=== PATIENT | male | born 1960 | race Caucasian/White ===

== ENCOUNTER 2018-03-20 11:55 | Outpatient (REF) | payer MEDICARE, SELFPAY ==
[2018-03-20 19:54] LABS: TSH (W/Ref FT4) 2.39 uIU/mL (0.358-3.74)
== END 2018-03-20 12:15 ==
LOC: NCHCN 11:55
PROVIDERS: PCP Family Medicine; Visit Provider Family Medicine
DX: E89.0 Postprocedural hypothyroidism (principal)
CPT/HCPCS: 84443

== ENCOUNTER 2018-08-16 10:14 | Outpatient (REF) | payer MEDICARE, SELFPAY ==
[2018-08-16 14:21] LABS: ALT 31 U/L (12-78); AST 15 U/L (15-37); Albumin 3.7 g/dL (3.4-5.0); Alkaline Phosphatase 84 U/L (46-116); Anion Gap 7.5 mmol/L (3-11); BUN 13 mg/dL (7-18); Bilirubin, Total 0.5 mg/dL (0.2-1.0); CO2 30.5 mmol/L (21.0-32.0); CREATININE 0.99 mg/dL (0.70-1.30); Chloride 102 mmol/L (98-107); Glucose 208 mg/dL (70-100); Magnesium 1.8 mg/dL (1.8-2.4); Potassium 4.4 mmol/L (3.5-5.1); Sodium 140 mmol/L (136-145); Total Protein 6.9 g/dL (6.4-8.2)
== END 2018-08-16 10:34 ==
LOC: NCHCN 10:14
PROVIDERS: PCP Family Medicine; Visit Provider Family Medicine
DX: E11.9 Type 2 diabetes mellitus without complications (principal); E83.42 Hypomagnesemia; Z68.37 Body mass index [BMI] 37.0-37.9, adult
CPT/HCPCS: 80053; 83735

== ENCOUNTER 2019-02-12 11:42 | Outpatient (REF) | payer MEDICARE, SELFPAY ==
[2019-02-12 20:30] LABS: Calculated LDL 65 mg/dL; Cholesterol 127 mg/dL (50-200); HDL Cholesterol 35 mg/dL (40-60); Triglyceride 138 mg/dL (30-150)
== END 2019-02-12 12:02 ==
LOC: NCHCN 11:42
PROVIDERS: PCP Family Medicine; Visit Provider Family Medicine
DX: E11.9 Type 2 diabetes mellitus without complications (principal)
CPT/HCPCS: 80061; 83721

== ENCOUNTER 2019-06-20 13:30 | Outpatient (REF) | payer MEDICARE, SELFPAY ==
[2019-06-20 14:25] LABS: Anion Gap 9.2 mmol/L (3-11); BUN 15 mg/dL (7-18); CO2 26.8 mmol/L (21.0-32.0); CREATININE 0.88 mg/dL (0.70-1.30); Calcium 9.1 mg/dL (8.5-10.1); Chloride 106 mmol/L (98-107); Glucose 110 mg/dL (74-106); Magnesium 1.8 mg/dL (1.8-2.4); Potassium 4.2 mmol/L (3.5-5.1); Sodium 142 mmol/L (136-145); TSH (W/Ref FT4) 2.98 uIU/mL (0.36-3.74)
== END 2019-06-20 13:50 ==
LOC: NCHCN 13:30
PROVIDERS: PCP Family Medicine; Visit Provider Family Medicine
DX: E89.0 Postprocedural hypothyroidism (principal); E11.9 Type 2 diabetes mellitus without complications; E83.42 Hypomagnesemia
CPT/HCPCS: 80048; 83735; 84443

== ENCOUNTER 2020-05-26 20:20 | Outpatient (REF) | payer OTHER, SELFPAY ==
[2020-05-26 20:58] LABS: ALT 41 U/L (16-63); AST 15 U/L (15-37); Albumin 4.1 g/dL (3.4-5.0); Alkaline Phosphatase 77 U/L (46-116); Anion Gap 10.5 mmol/L (3-11); BUN 13 mg/dL (7-18); Bilirubin, Total 0.4 mg/dL (0.2-1.0); CO2 25.5 mmol/L (21.0-32.0); Calcium 9.1 mg/dL (8.5-10.1); Chloride 105 mmol/L (98-107); Glucose 180 mg/dL (74-106); Potassium 4.1 mmol/L (3.5-5.1); Sodium 141 mmol/L (136-145); TSH (W/Ref FT4) 3.54 uIU/mL (0.36-3.74); Total Protein 6.7 g/dL (6.4-8.2)
[2020-05-26 21:04] LABS: Hemoglobin A1C 6.3 % (<5.7)
== END 2020-05-26 20:40 ==
LOC: NCHCN 20:20
PROVIDERS: PCP Family Medicine; Visit Provider Family Medicine
DX: E83.42 Hypomagnesemia (principal); E89.0 Postprocedural hypothyroidism; E11.9 Type 2 diabetes mellitus without complications
CPT/HCPCS: 80053; 83036; 83735; 84443

== ENCOUNTER → 2020-09-14 09:52 | Outpatient (BNVA) | payer OTHER, SELFPAY | PROVIDERS: PCP Family Medicine; Referring Provider Family Medicine; Visit Provider Surgery | DX: L72.3 Sebaceous cyst (principal); L08.9 Local infection of the skin and subcutaneous tissue, unspecified | CPT/HCPCS: 10060; 99203; 99215 ==

== ENCOUNTER → 2020-09-24 11:17 | Outpatient (BNVA) | payer OTHER, SELFPAY | PROVIDERS: PCP Family Medicine; Referring Provider Family Medicine; Visit Provider Physical Therapy Assistant | DX: L72.3 Sebaceous cyst (principal); L08.9 Local infection of the skin and subcutaneous tissue, unspecified | CPT/HCPCS: 11442 ==

== ENCOUNTER → 2020-10-01 12:43 | Outpatient (BNVA) | payer OTHER, SELFPAY | PROVIDERS: PCP Family Medicine; Referring Provider Family Medicine; Visit Provider Physical Therapy Assistant | DX: Z48.02 Encounter for removal of sutures (principal) ==

== ENCOUNTER → 2021-02-14 10:56 | Outpatient (BNVA) | payer OTHER, SELFPAY | PROVIDERS: PCP Family Medicine; Referring Provider Family Medicine; Visit Provider Nurse Practitioner Gerontology | DX: L98.7 Excessive and redundant skin and subcutaneous tissue (principal); B37.49 Other urogenital candidiasis | CPT/HCPCS: 99215 ==

== ENCOUNTER 2021-04-15 14:05 | Outpatient (REF) | payer OTHER, SELFPAY ==
[2021-04-15 14:30] LABS: ALT 37 U/L (16-63); AST 22 U/L (15-37); Albumin 4.2 g/dL (3.4-5.0); Alkaline Phosphatase 79 U/L (46-116); Anion Gap 8.3 mmol/L (3-11); BUN 15 mg/dL (7-18); Bilirubin, Total 0.4 mg/dL (0.2-1.0); CO2 28.7 mmol/L (21.0-32.0); CREATININE 0.9 mg/dL (0.70-1.30); Calcium 9.3 mg/dL (8.5-10.1); Chloride 106 mmol/L (98-107); Glucose 112 mg/dL (74-106); Potassium 4.3 mmol/L (3.5-5.1); Sodium 143 mmol/L (136-145); TSH (W/Ref FT4) 3.82 uIU/mL (0.36-3.74); Total Protein 7.2 g/dL (6.4-8.2)
[2021-04-15 14:49] LABS: FREE T4 1.13 ng/dL (0.76-1.46)
== END 2021-04-15 14:06 | disposition home or self-care (01) ==
LOC: NCHCN 14:05
PROVIDERS: PCP Family Medicine; Visit Provider Family Medicine
DX: E89.0 Postprocedural hypothyroidism (principal); E11.9 Type 2 diabetes mellitus without complications; Z68.43 Body mass index [BMI] 50.0-59.9, adult
CPT/HCPCS: 80053; 84439; 84443

== ENCOUNTER 2021-05-02 01:33 | Outpatient (CLI) | payer OTHER, SELFPAY ==
--- NOTE | 2021-05-02 | DI.CTLCSR_ITS ---
Exam(s) CT CHEST LUNG CANCER SCREEN EXAM: CT CHEST LUNG CANCER SCREEN CLINICAL HISTORY: SCREENING FOR LUNG CA, FORMER SMOKER, Z87.891. TECHNIQUE: Imaging Protocol: Low Dose Technique CONTRAST MATERIAL: None COMPARISON: Chest x-ray performed April 2017 FINDINGS: CHEST: LUNGS: There are no ominous pulmonary nodules. There are no confluent infiltrates. No pleural effusi ons. MEDIASTINUM: There is no obvious hilar nor mediastinal adenopathy. CARDIAC: Heart size is normal. There is no pericardial effusion.Caliber of the thoracic aorta is wit hin normal limits. OTHER: Mildly elevated right hemidiaphragm. OSSEOUS: No significant osseous lesions.. IMPRESSION: 1. No significant pulmonary nodules nor pleural effusions. 2. No infiltrates. No intrathoracic adenopathy. 3. Lung RADS Cat 1 - Negative: No nodules and definitely benign nodules Lung-RADS 1.0 CATEGORIES: Category 0 - Prior chest CT exam(s) being located for comparison. Category 1 - Annual screening in 12 months. No nodules or definitely benign nodules. Category 2 - Annual screening in 12 months. Benign appearance. Nodules with low likelihood of becomin g active cancer. Category 3 - 6-month follow-up. Probably benign. Short-term follow-up suggested. Nodules with low lik elihood of becoming active cancer. Category 4A - 3-month follow-up and CT/PET if >8 mm in size. Suspicious finding. Findings which requi re additional testing. Category 4B - Findings which require additional testing and tissue sampling. Modifier S- Potentially clinically significant findings (non lung cancer) RADIATION DOSE DELIVERED: 86.5mGy.cm Total DLP 2.21mGy CTDIvol DATA REPOSITORY: All CT scans at this facility are submitted to the National Radiology Data Registry (NRDR) Dose Index Registry (DIR) with the [employer] (ACR). RADIATION OPTIMIZATION: All CT scans at this facility use at least one of these dose optimization te chniques: automated exposure control; mA and/or kV adjustment per patient size (includes targeted exa ms where dose is matched to clinical indication); or iterative reconstruction.
== END 2021-05-02 01:53 ==
PROVIDERS: PCP Family Medicine; Visit Provider Family Medicine
DX: Z87.891 Personal history of nicotine dependence (principal); Z12.2 Encounter for screening for malignant neoplasm of respiratory organs
CPT/HCPCS: 71271

== ENCOUNTER 2021-10-11 15:26 | Outpatient (REF) | payer OTHER, SELFPAY ==
[2021-10-11 17:15] LABS: TSH (W/Ref FT4) 3.41 uIU/mL (0.36-3.74)
== END 2021-10-11 15:27 | disposition home or self-care (01) ==
LOC: NCHCN 15:26
PROVIDERS: PCP Family Medicine; Visit Provider Family Medicine
DX: E89.0 Postprocedural hypothyroidism (principal)
CPT/HCPCS: 84443

== ENCOUNTER 2022-03-24 17:20 | Outpatient (REF) | payer OTHER, SELFPAY ==
--- NOTE | 2022-03-24 16:00 | PAPNONF_PTH ---
PATIENT: Peewee Gomez LOC: [facility]#:[id number] AGE/SX: 62/M ROOM: RE03/24/[address]: Annalee Hoffman : 1960 BED: DIS: 03/24/2022 SPEC #: [id number] RECD: 03/27/22 13:14 STATUS: YOSI RERonak #: [id number] MISAEL: 03/24/22 16:[address]: Annalee Hoffman DEPT: [facility] Cytology RECD BY: Salena Osorio ENTERED: 03/27/22 13:15 SP TYPE: RAMON BURKETT DR: Harsha Saavedra Tissues: 1 - BODY FLUID CYTO(SPUTUM/URINE)[facility] Procedures: BODY FLUID CYTO(URINE/SPUTUM) Comments: [id number] (TOTAL VOLUME = 100 ml) (50 ml URINE & 50 ml CYTOLYT ADDED IN 2 CONTAINERS)
[2022-03-24 19:12] LABS: Bilirubin Negative (Negative); Blood Moderate (Negative); Clarity Cloudy (Clear); Glucose 500 mg/dL (Negative); Ketones Negative (Negative); Leukocyte Esterase Negative (Negative); Nitrite Positive (Negative); Specific Gravity >= 1.030 (1.005-1.025); Urobilinogen 0.2 EU/dL (Up TO 0.2); pH 5.5 (5-8)
[2022-03-24 19:24] LABS: Bacteria Moderate HPF (Negative); C & S Indicated? C&S Done As Ordered; Casts Negative LPF (Negative); Crystals Negative HPF (Negative); Epithelial Cells Few HPF (Negative); HCT 44.7 % (40.0-50.0); HGB 14.7 g/dL (13.5-17.5); MCH 28.8 pg (27.0-33.0); MCHC 32.9 % (32.0-36.0); MCV 88 fL (80-95); MPV 9.8 fL (8.0-11.0); Mucus Negative (Negative); Platelet Count 281 10^3/uL (130-400); RBC 5.11 10^6/uL (4.36-5.78); RDW 14.2 % (11.8-14.1); RDW-SD 45.4 fL; WBC 8.46 10^3/uL (4.4-10.8)
[2022-03-24 19:39] LABS: BUN 16 mg/dL (7-18); CREATININE 0.9 mg/dL (0.70-1.30); Calcium 9.2 mg/dL (8.5-10.1); Chloride 104 mmol/L (98-107); Estimated GFR 95.97 (mL/min/1.73m2); Glucose 91 mg/dL (74-106); Potassium 4.1 mmol/L (3.5-5.1); Sodium 141 mmol/L (136-145)
[2022-03-27 09:41] LABS: PSA, Diagnostic 5.8 ng/mL (<=4.5)
== END 2022-03-24 17:21 | disposition home or self-care (01) ==
LOC: NCHCN 17:20
PROVIDERS: PCP Family Medicine; Visit Provider Nurse Practitioner Family
DX: R32 Unspecified urinary incontinence (principal)
CPT/HCPCS: 80048; 85027; 87077; 81003; 81015; 84153; 87086; 87186; 88104

== ENCOUNTER → 2022-06-02 00:18 | Outpatient (CLI) | payer MEDICARE, SELFPAY ==
--- NOTE | 2022-06-02 08:40 | DI.CTLCSR_ITS ---
Exam(s) CT CHEST LUNG CANCER SCREEN EXAM: CT CHEST LUNG CANCER SCREEN CLINICAL HISTORY: FORMER SMOKER Z87.891, SCREENING FOR LUNG CANCER. TECHNIQUE: Imaging Protocol: Low Dose Technique CONTRAST MATERIAL: None COMPARISON: CT CT CHEST LUNG CANCER SCREEN from 05/02/2021 FINDINGS: CHEST: LUNGS: There are no ominous pulmonary nodules. There are no confluent infiltrates. No pleural effusi ons. MEDIASTINUM: There is no obvious hilar nor mediastinal adenopathy. CARDIAC: Heart size is normal. There is no pericardial effusion.Caliber of the thoracic aorta is wit hin normal limits. OTHER: OSSEOUS: No significant osseous lesions.. IMPRESSION: 1. No significant pulmonary nodules and no pleural effusions. 2. No infiltrates. No intrathoracic adenopathy. 3. Lung RADS Cat 1 - Negative: No nodules and definitely benign nodules Lung-RADS 1.0 CATEGORIES: Category 0 - Prior chest CT exam(s) being located for comparison. Category 1 - Annual screening in 12 months. No nodules or definitely benign nodules. Category 2 - Annual screening in 12 months. Benign appearance. Nodules with low likelihood of becomin g active cancer. Category 3 - 6-month follow-up. Probably benign. Short-term follow-up suggested. Nodules with low lik elihood of becoming active cancer. Category 4A - 3-month follow-up and CT/PET if >8 mm in size. Suspicious finding. Findings which requi re additional testing. Category 4B - Findings which require additional testing and tissue sampling. Category 4X - Category 3 or 4 nodules with additional features or imaging findings that increases the suspicion of malignancy. Modifier S- Potentially clinically significant findings (non lung cancer) RADIATION DOSE DELIVERED: Total DLP !Error CTDIvol DATA REPOSITORY: All CT scans at this facility are submitted to the National Radiology Data Registry (NRDR) Dose Index Registry (DIR) with the [employer] (ACR). RADIATION OPTIMIZATION: All CT scans at this facility use at least one of these dose optimization te chniques: automated exposure control; mA and/or kV adjustment per patient size (includes targeted exa ms where dose is matched to clinical indication); or iterative reconstruction.
== END ==
PROVIDERS: PCP Family Medicine; Visit Provider Family Medicine
DX: Z87.891 Personal history of nicotine dependence (principal); Z12.2 Encounter for screening for malignant neoplasm of respiratory organs
CPT/HCPCS: 71271

== ENCOUNTER 2022-07-11 13:35 | Outpatient (REF) | payer MEDICARE, SELFPAY ==
[2022-07-11 22:53] LABS: PSA, Screening 0.7 ng/mL (<=4.5)
== END 2022-07-11 13:36 | disposition home or self-care (01) ==
LOC: NCHCN 13:35
PROVIDERS: PCP Family Medicine; Visit Provider Family Medicine
DX: R97.20 Elevated prostate specific antigen [PSA] (principal); Z12.5 Encounter for screening for malignant neoplasm of prostate
CPT/HCPCS: 84153

== ENCOUNTER → 2022-07-13 08:15 | Outpatient (BNVA) | payer MEDICARE, SELFPAY | PROVIDERS: PCP Family Medicine; Referring Provider Family Medicine; Visit Provider Nurse Practitioner Gerontology | DX: L98.7 Excessive and redundant skin and subcutaneous tissue (principal) | CPT/HCPCS: 99214 ==

== ENCOUNTER 2023-04-09 13:12 | Outpatient (REF) | payer MEDICARE, SELFPAY ==
[2023-04-09 16:18] LABS: ALT 36 U/L (16-63); AST 22 U/L (15-37); Alkaline Phosphatase 74 U/L (46-116); Anion Gap 11.2 mmol/L (3-11); BUN 17 mg/dL (7-18); Bilirubin, Total 0.4 mg/dL (0.2-1.0); CO2 25.8 mmol/L (21.0-32.0); CREATININE 0.9 mg/dL (0.70-1.30); Calcium 9.6 mg/dL (8.5-10.1); Calculated LDL 36 mg/dL (<100); Chloride 102 mmol/L (98-107); Cholesterol 107 mg/dL (<200); Estimated GFR 95.37 (mL/min/1.73m2); Glucose 192 mg/dL (74-106); HDL Cholesterol 41 mg/dL (40-60); Magnesium 1.8 mg/dL (1.8-2.4); Potassium 4.2 mmol/L (3.5-5.1); Sodium 139 mmol/L (136-145); TSH (W/Ref FT4) 2.55 uIU/mL (0.36-3.74); Triglyceride 153 mg/dL (<150)
== END 2023-04-09 13:13 | disposition home or self-care (01) ==
LOC: NCHCN 13:12
PROVIDERS: PCP Family Medicine; Visit Provider Family Medicine
DX: E89.0 Postprocedural hypothyroidism (principal); E83.42 Hypomagnesemia; E11.9 Type 2 diabetes mellitus without complications; E66.8 Other obesity; Z68.43 Body mass index [BMI] 50.0-59.9, adult
CPT/HCPCS: 80053; 80061; 83735; 84443

== ENCOUNTER → 2023-05-30 13:33 | Outpatient (BNVA) | payer MEDICARE, SELFPAY | PROVIDERS: PCP Family Medicine; Referring Provider Family Medicine; Visit Provider Surgery | DX: Z12.11 Encounter for screening for malignant neoplasm of colon (principal); Z86.010 Personal history of colon polyps ==

== ENCOUNTER 2023-06-15 06:06 | Day surgery (SDC) | payer MEDICARE, SELFPAY ==
--- NOTE | 2023-06-14 19:36 | W.PM.DSUDISC ---
Date of service: 06/15/23 Time of Service: 08:51 Discharge Plan Disposition Patient Disposition: Home Condition: Good Discharge Details Reason For Visit: Screening colonocsopy Attending Provider: Gera Loya Primary Care Provider: Harsha Saavedra Home Meds and New Rx's Prescriptions: Continued levothyroxine [Synthroid] 100 mcg tablet 100 mcg PO DAILY polyethylene glycol 3350 17 gram/dose powder 238 g PO ONCE Qty: 238 0RF Rx Instructions: take per colonoscopy instructions bisacodyl [Dulcolax (bisacodyl)] 5 mg tablet,delayed release (DR/EC) 5 mg PO ONCE Qty: 4 0RF Rx Instructions: take per colonoscopy instructions vitamin B complex Tablet 1 tab PO DAILY atorvastatin 10 mg tablet 10 mg PO QHS Jardiance 25 mg tablet 25 mg PO DAILY metformin 1,000 mg tablet 1,000 mg PO BID Spiriva Respimat 2.5 mcg/actuation mist 2 puff inhalation DAILY budesonide-formoterol [Symbicort] 160-4.5 mcg/actuation HFA aerosol inhaler 2 puff inhalation BID Trulicity 0.75 mg/0.5 mL pen injector 0.5 mg subcut QWEEK acetaminophen [Acetaminophen Extra Strength] 500 MG tablet 1,000 mg PO PRN PRN cholecalciferol (vitamin D3) [Vitamin D3] 400 UNIT tablet 400 units PO DAILY albuterol sulfate [ProAir HFA] 8.5 GM HFA aerosol inhaler 8.5 g Inhalation Q4H PRN Discharge Instructions Instructions: Diverticulosis (GEN), Colorectal Polyps (GEN), Diverticulosis Diet (GEN) Additional Instructions: Peewee, we were able to complete your colonoscopy today without any difficulty. I did find several polyps, some of which were larger than I would like to see. Otherwise, there were no particularly worrisome features about them. In total, I removed about 12 polyps. It will take a week or 2 for me to get the results of the polyp report. Typically, I use that information to guide when the patient should have the next colonoscopy. However, because of the large number of polyps that you have (technically greater than 10) I do recommend a follow-up colonoscopy within 1 year. When I have the results of the polyp report, I will certainly be in touch and share those with you. If you have any questions in the meantime, please do not hesitate to call at any point. 1. If tolerated, consume a soft, low fiber diet for 1-2 days. 2[address] Do not drive, drink alcohol, operate machinery, make critical decisions, or do activities that require coordination or balance for 24 hours. 3. Because air was put into your colon during the procedure, expelling air from your rectum (passing gas or farting) is normal. 4. You may not have a bowel movement for 1-3 days because of the colonoscopy prep. This is normal. 5. Go directly to the emergency room if you notice any of the following: Develop chills (warm to touch), or if you have a thermometer and your temperature is above 101 Difficulty breathing or difficultly swallowing Persistent vomiting Severe abdominal pain, other than gas cramps Severe chest pain Black, tarry stools Any bleeding ? exceeding one tablespoon 6. Call your physician if the site where your intravenous was started becomes red, swollen, painful, and warm to touch. 7. Your physician has reviewed your pre-procedure medications. Please continue to take those medications as previously ordered. You will be given specific information/education regarding any changes to your medications before leaving. Activity:: Activity as Tolerated Diet:: As Tolerated Discharge Orders Discharge Orders: Discharge Order (Routine); Ordered 06/14/23 Ordered By: Gera Loya DS: Diagnosis Discharge Diagnosis (1) Encounter for screening colonoscopy: Status: Acute Asessment and Plan: Follow-up on polypectomy results
--- NOTE | 2023-06-14 19:38 | COLE_ITS ---
Date of service: 06/15/23 Time of Service: 08:53 Colonoscopy Report Date of procedure: 06/15/23 Pre-op diagnosis general: screening colonoscopy Post-op diagnosis procedure note: other (Diverticulosis, colon and rectal polyps) Procedure: Colonoscopy Surgeon: Gera Loya Anesthesia Type: General:No Airway Estimated blood loss (mL): 20 Pathology: other (Colon and rectal polyps) Complications: None Disposition: same day Indications: Peewee is a 63 year old man who needs a screening colonoscopy Prep: Miralax/Dulcolax Procedure Start Time: 07:30 Procedure End Time: 08:33 Retraction Time: 47 Findings: Rectal polyps ranging in size from about 0.25 cm to 0.5 cm; 3 specimens obtain ed. Cecal polyps ranging in size from 0.75 to 1 cm, 0.25, 0.5, and 0.75 cm a sending colon polyps. 1 cm polyp at 95 cm. 0.5 cm polyp at 90 cm. 0.25 cm polyp at 65 cm Procedure Description: After the induction of monitored anesthetic care, and with the patient in left lateral decubitus position, I began by performing an external anorectal exam.? Perineum and skin were normal, as was the anal verge.? There was no evidence of external hemorrhoids.? Next, I performed a digital rectal exam.? I did not appreciate any abnormal findings.? Next, I advanced a colonoscope into the rectal vault.? I performed retroflexion.? I this appeared normal.? There were several sessile rectal polyps, a majority of which were less than 0.25 cm. Narrowband imaging was used to analyze them. 2 of the polyps had features that seemed more consistent with adenomatous polyps. These were removed with cold forcep polypectomy and minimal bleeding. Using insufflation, I then advanced the colonoscope beyond the rectal folds and into the sigmoid colon before advancing towards the cecum.? There was some scattered sigmoid diverticulosis. The quality of the prep was adequate.? The scope was noted to be in the cecum by identification of the ileocecal valve and appendiceal orifice.? There were several polyps within the cecum ranging in size from about 0.75 to 1 cm. These were mostly pedunculated. These were retrieved with energize snare polypectomy. Similarly, there were 0.25 and 0.5 cm polyps in the ascending colon. These were a bit more sessile. These were removed with cold forceps, and cold snare polypectomy. I then began withdrawing the colonoscope using repeated irrigation as necessary for full evaluation of the colonic mucosa. Around 95 cm from the anal verge was a 1.0 cm sessile polyp. This was removed with cold snare polypectomy. I also found a 0.5 cm polyp at 90 cm which was a bit more raised. This was removed with cold forceps. Another polyp was found at 65 cm this was sessile and about 0.25 cm in size. This was also removed with cold forceps. Once the scope was withdrawn to the level of the rectum, great care was taken to examine portions of the rectal folds.? Finally, the scope was withdrawn and the patient was brought to the same-day surgery recovery unit as the anesthetic wore off. ?The findings and instructions were shared with the patient prior to discharge. [place] Bowel Prep [place] Bowel Prep Right Colon: 2 Left Colon: 3 Transverse Colon: 3 Total Score: 8
[2023-06-15 06:26] VITALS: BP 123/77; PULSE 71; RESP 18; TEMP 36.7; O2SAT 93
--- NOTE | 2023-06-15 06:35 | ANES.PREOP_ITS ---
General Info Date of Service Date Performed: 06/15/23 Height: 6 ft 1 in Weight: 152.974 kg Body Mass Index (BMI): 44.4 Surgical Procedure: Operation Date: 06/15/23 07:35 Proposed Procedure Side Surgeon p Colonoscopy Gera Loya MD Meds Allergies and Home Medications Allergies Allergy/AdvReac Type Severity Reaction Status Date / Time No Known Allergies Allergy Unverified 06/15/23 06:15 Home Medication Medication Instructions Recorded acetaminophen 500 mg tablet 1,000 mg PO PRN PRN 06/25/13 (Acetaminophen Extra Strength) cholecalciferol (vitamin D3) 10 400 units PO DAILY 06/25/13 mcg (400 unit) tablet (Vitamin D3) albuterol sulfate 90 mcg/actuation 8.5 g inhalation Q4H PRN 04/29/17 aerosol inhaler (ProAir HFA) atorvastatin 10 mg tablet 10 mg PO QHS 09/14/20 budesonide-formoterol HFA 160 2 puff inhalation BID 09/14/20 mcg-4.5 mcg/actuation aerosol inhaler (Symbicort) empagliflozin 25 mg tablet 25 mg PO DAILY 09/14/20 (Jardiance) metformin 1,000 mg tablet 1,000 mg PO BID 09/14/20 tiotropium bromide 2.5 2 puff inhalation DAILY 09/14/20 mcg/actuation mist for inhalation (Spiriva Respimat) vitamin B complex 1 tab PO DAILY 09/14/20 dulaglutide 0.75 mg/0.5 mL 0.5 mg subcut QWEEK 04/17/22 subcutaneous pen injector (Trulicity) bisacodyl 5 mg tablet,delayed 5 mg PO ONCE colonscopy bowel prep 05/30/23 release (Dulcolax (bisacodyl)) #4 tabs levothyroxine 100 mcg tablet 100 mcg PO DAILY 05/30/23 (Synthroid) polyethylene glycol 3350 17 238 g PO ONCE colonoscopy prep 05/30/23 gram/dose oral powder #238 grams Current Visit Medications: Current Medications Generic Name Dose Route Start Last Admin Trade Name Freq PRN Reason Stop Dose Admin Hyoscyamine Sulfate 0.125 mg 06/14/23 19:39 Hyoscyamine 0.125 Mg Sl/Oral/Chew SL 07/14/23 19:38 DIRECTED PRN Ringer's Solution 1,000 mls @ 80 mls/hr 06/15/23 06:00 IV 07/14/23 23:59 INF[facility]ION [facility] IV Miscellaneous Supplies 1 each 06/15/23 06:00 Iv Access IV 07/14/23 23:59 DIRECTED RAYMOND Ondansetron HCl 4 mg 06/14/23 19:39 Ondansetron 4 Mg/2 Ml Vial IVP 07/14/23 19:38 Q4H PRN PRN Nausea / Vomiting Sodium Chloride 0 ml 06/15/23 06:00 Normal Saline Flush 10 Ml Syr IV 07/14/23 23:59 PRN PRN Sodium Chloride 0 ml 06/15/23 06:00 Normal Saline 10 Ml Vial IJ 07/14/23 23:59 DIRECTED PRN Sterile Water 0 ml 06/15/23 06:00 Water,Injection,Sterile 10 Ml Vial IJ 07/14/23 23:59 DIRECTED PRN PFSH Active Problems Active Problems: Problem Status Onset Code Encounter for screening colonoscopy Z12.11 Osteoarthritis, knee M17.9 Hypomagnesemia E83.42 JUAN (obstructive sleep apnea) G47.33 Diabetic peripheral neuropathy E11.42 Diabetes mellitus E11.9 Sessile colonic polyp K63.5 Nephropathy N28.9 Urinary incontinence R32 Erectile dysfunction N52.9 Elevated PSA R97.20 Infected sebaceous cyst of skin L72.3, L08.9 Medical History Medical History Former smoker Dystrophic nail Venous insufficiency Retinal detachment Cyst Phimosis Vitreous floaters of left eye Hypothyroidism Hyperlipidemia Diabetes 1.5, managed as type 1 Obstructive airway disease severe Primary osteoarthritis of right knee (04/10/16) Obesity Tobacco Smoking/Tobacco Use Status: Former Tobacco Use Alcohol Alcohol Intake: never Substance Use Substance use: Never Substance use type: does not use Vital Signs and Lab Results Vital Signs Most Recent Vital Signs in EMR: Temp Pulse Resp BP Pulse Ox 36.7 C 71 18 123/77 93 06/15/23 06:26 06/15/23 06:26 06/15/23 06:26 06/15/23 06:26 06/15/23 06:26 Lab Results Blood Type / Crossmatch: No Data to Display Complete Blood Count: No Data to Display Complete Metabolic Panel: No Data to Display Liver Function Panel: No Data to Display Coagulation Panel: No Data to Display Cardiac Panel: No Data to Display Arterial Blood Gas: No Data to Display Venous Blood Gas: No Data to Display Pancreas Panel: No Data to Display Thyroid Panel: No Data to Display Infectious Disease: No Data to Display Blood Cultures: No Data to Display Toxicology Panel: No Data to Display Imaging and Studies Imaging and Studies Study information below may be from another EMR and interpreted by another provider. Please see original notes in EMR for more complete details. Stress Test Summary: 05/01: normal study. Pulmonary Function Summary: 09/30: severe obstruction with sig bronchodilator response. Anesthesia Assessment and Plan Anesthesia History Personal History: No History of Anesthesia Complications Family History: No Family History of Anesthesia Complications Exercise Tolerance Exercise Tolerance: Metabolic Equivalents>4 Cardiac & Pulmonary Exam Cardiac Exam: Normal S1/S2 Heart Sounds Pulmonary Exam: Clear Bilateral Breath Sounds Implantable Cardiac Device Does patient have a Pacemaker or an ICD?: No Airway Exam Known Difficult Airway: No Mallampati Class: 4 Mouth Opening: Normal (> 3cm) Thyromental Distance: Less than 3 cm Facial Hair: Full [place] Neck Range of Motion: Limited ROM Neck Circumference: Thick Teeth Condition: Other (only a few teeth on bottom denies loose. ) ASA Classification ASA Score: ASA 3 Emergency Case?: No NPO Status NPO Status: NPO Clears >2 hours, Solids >8 hours Anesthesia Plan Resuscitation Status: Full Code Anesthesia Technique: General Anesthesia Airway Planned: Natural Airway Monitors Used: Standard Monitors Preoperative Comments:: 63 yo male for colo. Sig PMHx: JUAN, COPD (albuterol, symbicort, breathing feels good today, states rare rescue inhaler use), DM (with neuropathy/nephropathy, last A1c 6.3, trulicity, jardiance, metformin, BS 114 today), hypothyroid (on replacement)
[2023-06-15] MEDS: Lactated Ringers 1,000 ML 80 ML IV (06:40)
[2023-06-15 07:09] VITALS: BMI 44.4
--- NOTE | 2023-06-15 07:34 | BOWEL_PTH ---
PATIENT: Peewee Gomez LOC: [facility] U#:[id number] AGE/SX: 63/M ROOM: RE06/15/[address]: Gera Loya MD : 1960 BED: DIS: 06/15/2023 SPEC #: [id number] RECD: 06/15/23 12:14 STATUS: YOSI RE #: [id number] MISAEL: 06/15/23 07:[address]: Gera Loya DEPT: Surgical Specimen RECD BY: Salena Osorio ENTERED: 06/15/23 12:17 SP TYPE: Bowel OTHR DR: Harsha Saavedra Tissues: 1 - BIOPSY BOWEL 2 - BIOPSY BOWEL 3 - BIOPSY BOWEL 4 - BIOPSY BOWEL 5 - BIOPSY BOWEL 6 - BIOPSY BOWEL Procedures: GROSS AND MICRO LEVEL 4 Comments: [id number]
[2023-06-15 08:42] VITALS: BP 105/67; PULSE 78; RESP 16; TEMP 36.4; O2SAT 98
[2023-06-15 08:55] VITALS: BP 122/75; PULSE 75; RESP 18; O2SAT 96
--- NOTE | 2023-06-15 09:09 | W.ANESPOSTOP ---
Postoperative Evaluation Date, Time and Location Date Performed: 06/15/23 Time Performed: 08:50 Patient Location: Day Surgery Unit Vital Signs Most Recent Imported Vital Signs: Most Recent Vital Signs Temp Pulse Resp BP Pulse Ox 36.4 C L 75 18 122/75 96 06/15/23 08:42 06/15/23 08:55 06/15/23 08:55 06/15/23 08:55 06/15/23 08:55 Pain Score Most Recent Pain Score: Most Recent Pain Score Pain Level 0 06/15/23 08:55 Assessment Mental Status: Awake (Alert & Oriented to Patient Baseline) Airway and Respiratory Function: Patent airway with normal (patient baseline) respiratory exam Cardiovascular Function: Hemodynamically Stable Hydration Status: Adequately Hydrated Nausea & Vomiting: No Nausea or Vomiting Pain: Pt. Denies Any Pain Peripheral Nerve Block: Patient did not receive a nerve block
[2023-06-15 09:24] VITALS: BP 120/74; PULSE 67; RESP 16; O2SAT 94
== END 2023-06-15 09:33 | disposition home or self-care (01) ==
PROVIDERS: PCP Family Medicine; Visit Provider Surgery
PROC: 0DJD8ZZ Inspection of Lower Intestinal Tract, Via Natural or Artificial Opening Endoscopic (ICD-10-PCS; CPT 45378; principal; 2023-06-15 07:30)
DX: Z12.11 Encounter for screening for malignant neoplasm of colon (principal); D12.0 Benign neoplasm of cecum; K57.30 Diverticulosis of large intestine without perforation or abscess without bleeding; J44.0 Chronic obstructive pulmonary disease with (acute) lower respiratory infection; G47.33 Obstructive sleep apnea (adult) (pediatric); E11.42 Type 2 diabetes mellitus with diabetic polyneuropathy; D12.2 Benign neoplasm of ascending colon; D12.3 Benign neoplasm of transverse colon
CPT/HCPCS: 45385; 45380; 88305; J2001

== ENCOUNTER → 2023-06-25 01:19 | Outpatient (CLI) | payer MEDICARE, SELFPAY ==
--- NOTE | 2023-06-25 08:50 | DI.CTLCSR_ITS ---
Exam(s) CT CHEST LUNG CANCER SCREEN EXAM: CT CHEST LUNG CANCER SCREEN CLINICAL HISTORY: FORMER SMOKER Z87.891 PREVENTIVE CARE Z00.00 SCREENING FOR LUNG CANCER TECHNIQUE: Imaging Protocol: Axial computed tomography images with coronal and sagittal reformatted images were created and reviewed. Low dose screening protocol. COMPARISON: CT CT CHEST LUNG CANCER SCREEN from 06/02/2022 FINDINGS: Tracheobronchial tree: No bronchiectasis or mucus plugging.. Mediastinum and Lizzy: No dominant adenopathy or fluid collection. Pulmonary parenchyma: No consolidation or dominant measurable mass. No visible emphysematous changes. Lung Nodules: None. Pleura: No effusion. No pneumothorax. Heart: The heart is not dilated. Mild coronary artery calcifications are seen. Aorta: Thoracic aorta non-dilated. Upper abdomen: Unremarkable. Bones: Unremarkable for age. Soft Tissues: Unremarkable. IMPRESSION: No suspicious pulmonary nodules. Lung RADS Cat 1 - Negative: No nodules and definitely benign nodules Lung-RADS 1.0 CATEGORIES: Category 0 - Prior chest CT exam(s) being located for comparison. Category 1 - Annual screening in 12 months. No nodules or definitely benign nodules. Category 2 - Annual screening in 12 months. Benign appearance. Nodules with low likelihood of becomin g active cancer. Category 3 - 6-month follow-up. Probably benign. Short-term follow-up suggested. Nodules with low lik elihood of becoming active cancer. Category 4A - 3-month follow-up and CT/PET if >8 mm in size. Suspicious finding. Findings which requi re additional testing. Category 4B - Findings which require additional testing and tissue sampling. Category 4X - Category 3 or 4 nodules with additional features or imaging findings that increases the suspicion of malignancy. Modifier S- Potentially clinically significant findings (non lung cancer) RADIATION DOSE DELIVERED: Total DLP DATA REPOSITORY: All CT scans at this facility are submitted to the National Radiology Data Registry (NRDR) Dose Index Registry (DIR) with the [employer] (ACR). RADIATION OPTIMIZATION: All CT scans at this facility use at least one of these dose optimization te chniques: automated exposure control; mA and/or kV adjustment per patient size (includes targeted exa ms where dose is matched to clinical indication); or iterative reconstruction.
== END ==
PROVIDERS: PCP Family Medicine; Visit Provider Family Medicine
DX: Z87.891 Personal history of nicotine dependence (principal); Z12.2 Encounter for screening for malignant neoplasm of respiratory organs
CPT/HCPCS: 71271

== ENCOUNTER 2023-08-06 12:36 | Outpatient (REF) | payer MEDICARE, SELFPAY ==
[2023-08-06 16:29] LABS: Hemoglobin A1C 5.9 % (<5.7)
== END 2023-08-06 12:37 | disposition home or self-care (01) ==
LOC: NCHCN 12:36
PROVIDERS: PCP Family Medicine; Visit Provider Family Medicine
DX: E11.65 Type 2 diabetes mellitus with hyperglycemia (principal)
CPT/HCPCS: 83036

== ENCOUNTER 2024-01-28 10:46 | Outpatient (REF) | payer MEDICARE, SELFPAY ==
[2024-01-28 15:42] LABS: ALT 32 U/L (16-63); AST 26 U/L (15-37); Albumin 4.1 g/dL (3.4-5.0); Alkaline Phosphatase 77 U/L (46-116); Anion Gap 10.5 mmol/L (3-11); BUN 13 mg/dL (7-18); Bilirubin, Total 0.54 mg/dL (0.2-1.0); CO2 27.5 mmol/L (21.0-32.0); CREATININE 0.8 mg/dL (0.70-1.30); Calcium 9.4 mg/dL (8.5-10.1); Calculated LDL 43 mg/dL (<100); Chloride 105 mmol/L (98-107); Cholesterol 112 mg/dL (<200); Estimated GFR 98.83 (mL/min/1.73m2); Glucose 100 mg/dL (74-106); HDL Cholesterol 41 mg/dL (40-60); Potassium 4.5 mmol/L (3.5-5.1); Sodium 143 mmol/L (136-145); Total Protein 7.1 g/dL (6.4-8.2); Triglyceride 140 mg/dL (<150)
[2024-01-28 16:21] LABS: COMMENT (LAB VIEW ONLY) 69.29 mg/dL; Microalb ug/mg Crea 6.6 ug/mg Cr
== END 2024-01-28 10:47 | disposition home or self-care (01) ==
LOC: NCHCN 10:46
PROVIDERS: PCP Student in an Organized Health Care Education/Training Program; Visit Provider Student in an Organized Health Care Education/Training Program
DX: E11.9 Type 2 diabetes mellitus without complications (principal); E03.9 Hypothyroidism, unspecified
CPT/HCPCS: 80053; 80061; 82043; 82570; 84443

== ENCOUNTER 2024-05-28 06:24 | Emergency (ER) | payer MEDICARE, SELFPAY ==
[2024-05-28 06:27] VITALS: BP 143/78; PULSE 91; RESP 22; TEMP 36.6; O2SAT 93
--- NOTE | 2024-05-28 06:30 | RT.EKG_ITS ---
APPROVED REPORT Exam: Resting ECG Reason for Exam: epigastric pain Patient Location: E HR:87 bpm ECG Measurements Heart Rate 87 AXIS GA 172 P -3 QRSd 103 QRS 29 QT 373 T 56 QTc 450 Conclusion Sinus rhythm...normal P axis, V-rate 60- 99 Low voltage, precordial leads...precordial leads <1.0mV I have reviewed and interpreted ECG and agree with software generated interpretation.
--- NOTE | 2024-05-28 06:55 | ED.GENADUL_ITS ---
Discharge Plan Discharge Details Chief Complaint: Abd Prob Clinical Impression: Acute epigastric pain Primary Care Provider: Nabil Marshall ED Provider: Nabil Brito Home Meds and New Rx's Prescriptions: No Action levothyroxine [Synthroid] 100 mcg tablet 100 mcg PO DAILY vitamin B complex Tablet 1 tab PO DAILY atorvastatin 10 mg tablet 10 mg PO QHS Jardiance 25 mg tablet 25 mg PO DAILY metformin 1,000 mg tablet 1,000 mg PO BID Spiriva Respimat 2.5 mcg/actuation mist 2 puff inhalation DAILY budesonide-formoterol [Symbicort] 160-4.5 mcg/actuation HFA aerosol inhaler 2 puff inhalation BID acetaminophen [Acetaminophen Extra Strength] 500 MG tablet 1,000 mg PO PRN PRN cholecalciferol (vitamin D3) [Vitamin D3] 400 UNIT tablet 400 units PO DAILY albuterol sulfate [ProAir HFA] 8.5 GM HFA aerosol inhaler 8.5 g Inhalation Q4H PRN Trulicity 1.5 mg/0.5 mL pen injector 1.5 mg SUBCUT .weekly HPI General Date/Time Provider Initiated Documentation: 05/28/24 06:51 . HPI Narrative: The patient is a 64-year-old male, with a past medical history significant for COPD, hyperlipidemia, afe-pdrqzyf-xrwrmtvpy diabetes mellitus, hypothyroidism, and prior retinal detachment, presents to the emergency department this evening complaining of epigastric discomfort which woke him from sleep this morning out of approximately 2:30 AM. The patient had associated nausea and vomiting prior to coming to the emergency room, but continues to have nausea at this time. The patient denies having any associated diarrhea. The patient states that he feels like there is a new lump above his umbilicus which is quite sore. The patient states that he has never had something like this before. However, when asked where his pain is, he reports that it is most significant in the epigastric region, which is quite a bit more caudal than the area of the lump. The patient denies have any prior abdominal surgeries or prior abdominal pain events like this. The patient denies drinking alcohol on a regular basis. The patient's last meal was 6:30 PM last night and was tolerated well without any problems. Related Data Home Medications ?Medication ?Instructions ?Recorded ?Confirmed acetaminophen 500 mg tablet 1,000 mg PO PRN PRN 06/25/13 05/28/24 (Acetaminophen Extra Strength) cholecalciferol (vitamin D3) 10 400 units PO DAILY 06/25/13 05/28/24 mcg (400 unit) tablet (Vitamin D3) albuterol sulfate 90 mcg/actuation 8.5 g inhalation Q4H PRN 04/29/17 06/15/23 aerosol inhaler (ProAir HFA) atorvastatin 10 mg tablet 10 mg PO QHS 09/14/20 05/28/24 budesonide-formoterol HFA 160 2 puff inhalation BID 09/14/20 05/28/24 mcg-4.5 mcg/actuation aerosol inhaler (Symbicort) empagliflozin 25 mg tablet 25 mg PO DAILY 09/14/20 05/28/24 (Jardiance) metformin 1,000 mg tablet 1,000 mg PO BID 09/14/20 05/28/24 tiotropium bromide 2.5 2 puff inhalation DAILY 09/14/20 05/28/24 mcg/actuation mist for inhalation (Spiriva Respimat) vitamin B complex 1 tab PO DAILY 09/14/20 05/28/24 levothyroxine 100 mcg tablet 100 mcg PO DAILY 05/30/23 05/28/24 (Synthroid) dulaglutide 1.5 mg/0.5 mL 1.5 mg subcut .weekly 05/28/24 05/28/24 subcutaneous pen injector (Trulicity) Allergies Allergy/AdvReac Type Severity Reaction Status Date / Time No Known Allergies Allergy Unverified 05/28/24 06:33 General Stated Complaint: Abd Prob LYNDSEY: 2 Exam Const General: cooperative and no acute distress Orientation: alert, awake and oriented x3 Eyes Pupils: PERRL, normal by confrontation and accommodation normal EOM: EOM intact bilaterally Resp Effort & Inspection: normal respiratory effort and able to speak in complete sentences Auscultation: clear to auscultation bilaterally Cardio Rate: regular rate Rhythm: regular rhythm GI Inspection: obesity Palpation: soft, guarding and tender in the epigastrum and periumbilically Auscultation: normal bowel sounds Neuro Cranial Nerves: CN's II-XI intact bilaterally Motor: muscle tone normal throughout and strength 5/5 throughout Sensory Exam: no sensory deficits noted Course Vital Signs Vital signs: Vital Signs Temperature 36.6 C 05/28/24 06:27 Pulse 91 H 05/28/24 06:27 Respiratory Rate 22 05/28/24 06:27 Blood Pressure 143/78 H 05/28/24 06:27 Pulse Oximetry 93 05/28/24 06:27 Temperature 36.6 C 05/28/24 06:27 Temperature Source Temporal Artery Scan 05/28/24 06:27 Pulse 91 H 05/28/24 06:27 Respiratory Rate 22 05/28/24 06:27 Respiratory Effort Normal, Non-Labored 05/28/24 06:44 Blood Pressure 143/78 H 05/28/24 06:27 Blood Pressure Position Sitting 05/28/24 06:27 Pulse Oximetry 93 05/28/24 06:27 Oxygen Delivery Method Room Air 05/28/24 06:27 Oxygen Flow Rate 0 05/28/24 06:27 Pain Level 9 05/28/24 06:27 Medical Decision Making The patient was seen and examined. He is in no distress test does report significant epigastric discomfort. I do not think that this epigastric discomfort is related to the ventral hernia or rectus diastases, but it is conceivable. The patient will most likely require CT scan for further evaluation after laboratory reviewed. This could represent biliary tract dysfunction, pancreatitis, atypical presentation for myocardial angina, hiatal hernia, gastritis, esophagitis, or duodenitis. Most likely, this represents some form of gastritis or esophagitis based on location of pain, the timing of the discomfort at night, and the patient's obesity. The case was signed out to Dr. Garcia at 7:10 AM for final review of the laboratory workup, further acquisition of radiographic data by either CT or ultrasound, and final disposition. Quality:SDOH Health Related Social Needs: No Data to Display PFSH All Active Problems (Updated 05/28/24 @ 07:13 by Nabil Brito MD) Acute epigastric pain (Acute) Tubular adenoma (Acute ~06/15/23) Osteoarthritis, knee (Acute) Hypomagnesemia (Acute) JUAN (obstructive sleep apnea) (Chronic) Diabetic peripheral neuropathy (Acute) Diabetes mellitus (Chronic) Sessile colonic polyp (Acute) Nephropathy (Acute) Urinary incontinence (Acute) Erectile dysfunction (Acute) Elevated PSA (Acute) Infected sebaceous cyst of skin (Acute) Medical History (Updated 05/28/24 @ 07:13 by Nabil Brito MD) Encounter for screening colonoscopy Former smoker Dystrophic nail Venous insufficiency Retinal detachment Cyst Phimosis Vitreous floaters of left eye Hypothyroidism Hyperlipidemia Diabetes 1.5, managed as type 1 Obstructive airway disease severe Primary osteoarthritis of right knee (04/10/16) Obesity Surgical History (Updated 06/26/23 @ 10:48 by Caprice Weiner RN) History of colonoscopy (~06/2023) with multiple polyps hyperplastic & tubular adenoma Social History Smoking/Tobacco Use Status: Former Tobacco Use Quit Date: 07/16/17 Smoking risk assessment performed?: Yes Alcohol Intake: never Drug use: Never Substance use type: does not use Housing: house Do you feel safe at home: Yes Do you feel safe in your relationship?: Yes Additional Social history: unable to assess privately, 06/15/23 nereida
[2024-05-28 07:14] LABS: Bilirubin Negative (Negative); Blood Negative (Negative); Clarity Sl Cloudy (Clear); Glucose 500 mg/dL (Negative); Ketones Negative (Negative); Leukocyte Esterase Negative (Negative); Nitrite Negative (Negative); Urobilinogen 0.2 mg/dL (Up to 0.2); pH 5.5 (5-8)
[2024-05-28] MEDS: Pantoprazole 40 MG VIAL IVP (07:15)
[2024-05-28] MEDS: MORPHine 10 MG/ML VIAL 4 MG IVP (07:17)
[2024-05-28] MEDS: Normal Saline 10 ML VIAL IJ (07:17)
[2024-05-28] MEDS: Ondansetron 4 MG/2 ML VIAL IVP ×2 (07:17→09:33)
[2024-05-28 07:20] LABS: Abs Immature Grans 0.07 10^3/uL (0.0-0.06); Basophils % 0.4 %; Eosinophils % 0.4 %; HCT 53.4 % (40.0-50.0); Immature Grans % 0.4 %; Lymphocytes % 5.7 %; MCH 29.1 pg (27.0-33.0); MCHC 31.8 % (32.0-36.0); MCV 91 fL (80-95); MPV 9.4 fL (8.0-11.0); Monocytes % 6.5 %; Neutrophils % 86.6 %; Platelet Count 270 10^3/uL (130-400); RBC 5.84 10^6/uL (4.36-5.78); RDW 14.2 % (11.8-14.1); RDW-SD 47.8 fL; WBC 19.58 10^3/uL (4.4-10.8)
[2024-05-28 07:21] LABS: Absolute Basophil Count 0.08 10^3/uL (0.0-0.2); Absolute Eosinophil Count 0.08 10^3/uL (0.0-0.7); Absolute Lymphocyte Count 1.12 10^3/uL (1.2-3.4); Absolute Monocyte Count 1.27 10^3/uL (0.1-0.8); Absolute Neutrophil Count 16.96 10^3/uL (1.2-6.7)
--- NOTE | 2024-05-28 07:30 | DI.CT_ITS ---
Exam(s) CT CHEST/ABD/PEL W EXAM: CT CHEST/ABD/PEL W CLINICAL HISTORY: epigastric and mid abd pain w/ vomiting. TECHNIQUE: Imaging Protocol: Axial computed tomography images with coronal and sagittal reformatted images were created and reviewed. Computer aided detection (CAD) was utilized. CONTRAST MATERIAL: Intravenous: Omnipaque 350 Contrast volume:100 ml Oral: yes / no COMPARISON: No exams were available for comparison FINDINGS: CHEST: Tracheobronchial tree: Patent. Pulmonary parenchyma: No consolidation or dominant measurable mass. Pleura: No effusion or pneumothorax. Mediastinum: Small lymph nodes, stable from prior exam. Aorta: Thoracic portion non-dilated. Pulmonary arteries: No visible emboli. Heart: No pericardial effusion. Bones: Unremarkable for age. No lytic or blastic lesions.No compression fractures. Soft tissues: Unremarkable. ABDOMEN and PELVIS: The exam is mildly limited by motion. Liver: Mildly enlarged. Fatty infiltration. No measurable mass. Gallbladder and biliary tract: No evidence of stones or wall thickening. No biliary dilatation. Pancreas: Normal density, no abnormal calcifications or inflammatory process. Spleen: Normal. Kidneys: Normal size, contour and axis. No radiodense stones. No obstructive uropathy. No suspicious masses seen. Adrenal glands: No masses seen. Aorta: Abdominal portion non-dilated. Lymph nodes: Within normal limits. Soft tissues: Unremarkable. Bladder: Unremarkable. Bowel: The stomach is filled with fluid. The duodenum is unremarkable. Distal small bowel loops are mildly distended. The colon also contains fluid, mainly at the cecum. The transverse through colon through rectum show little stool. Mild diverticulosis. No evidence of diverticulitis.. No obstruc tion or bowel wall thickening. Peritoneal cavity: No ascites. No focal collection. No mesenteric inflammatory response. No free ai r. Bones: Unremarkable for age. Reproductive organs: Within normal limits. IMPRESSION: No acute abnormality in the chest. The stomach, distal small bowel and cecum are mildly fluid distended no bowel wall thickening or infl ammatory changes. Findings could represent gastroenteritis. RADIATION DOSE DELIVERED: 1,172mGy.cm Total DLP DATA REPOSITORY: All CT scans at this facility are submitted to the National Radiology Data Registry (NRDR) Dose Index Registry (DIR) with the [employer] (ACR). RADIATION OPTIMIZATION: All CT scans at this facility use at least one of these dose optimization te chniques: automated exposure control; mA and/or kV adjustment per patient size (includes targeted exa ms where dose is matched to clinical indication); or iterative reconstruction.
[2024-05-28 07:38] LABS: ALT 32 U/L (16-63); AST 18 U/L (15-37); Albumin 4.4 g/dL (3.4-5.0); Alkaline Phosphatase 84 U/L (46-116); Anion Gap 13.3 mmol/L (3-11); BUN 21 mg/dL (7-18); Bilirubin, Total 0.55 mg/dL (0.2-1.0); CO2 27.7 mmol/L (21.0-32.0); CREATININE 1.2 mg/dL (0.70-1.30); Calcium 9.4 mg/dL (8.5-10.1); Chloride 104 mmol/L (98-107); Estimated GFR 67.11 (mL/min/1.73m2); Glucose 216 mg/dL (74-106); Lipase 32 U/L (16-77); Magnesium 1.9 mg/dL (1.8-2.4); Sodium 145 mmol/L (136-145); Total Protein 8.1 g/dL (6.4-8.2); Troponin I 5 ng/L (<or=76)
[2024-05-28] MEDS: Normal Saline - Diluent 50 ML VIAL IJ (08:06)
[2024-05-28] MEDS: Omnipaque 350 MG/ML 500 ML BTL-Imaging package 100 ML IJ (08:08)
[2024-05-28 09:04] LABS: Troponin I < 4 ng/L (<or=76)
--- NOTE | 2024-05-28 09:18 | ED.PROG_ITS ---
Date of service: 05/28/24 Time of Service: 09:19 Medical Decision Making Patient was signed out to me by my colleague Dr. Cherry. Please refer to his HPI, physical exam, assessment and plan. Pending laboratory workup and imaging return. Laboratory workup has returned, patient does have an elevated white count of 19, mild to moderate left shift, but no bandemia. He is afebrile here. Electrolytes normal, renal function good. Lipase normal. Serial troponins normal. EKG stable. Urinalysis shows no infection. Repeat exam demonstrates a nontender nonsurgical abdomen. Patient feels much better on reassessment. CT scan has returned, no evidence of obstruction, appendicitis, cholecystitis, or other acute surgical life-threatening etiology. Patient does have mild fluid distention inflammatory changes suggesting gastroenteritis or enteritis. Symptoms inconsistent with severe Crohn's or ulcerative colitis. Patient clinically feels much better. We will do a p.o. trial, monitor closely and reassess. Symptoms at this time appear inconsistent with ischemic gut, or other concerning etiology. 9:58 AM Patient has performed p.o. trial. No vomiting. Repeat abdominal exam demonstrates no abdominal tenderness whatsoever. He is asking to go home, and is asking for a second drink to go home with as well. Patient feels well. He will be given Zofran for home use. Patient stable for discharge. Discussed red flags for which to return I have extensively reviewed the treatment plan and discharge instructions with the patient. I have addressed all patient concerns at this time. The patient was made aware of what symptoms to monitor for that would warrant a return to the emergency department. Discussed the plan with the patient, they demonstrate verbal understanding and agreement with our assessment and plan at this time. The documentation in this chart was dictated using [employer] dictation software. Please excuse any dictation errors. FINDINGS: CHEST: Tracheobronchial tree: Patent. Pulmonary parenchyma: No consolidation or dominant measurable mass. Pleura: No effusion or pneumothorax. Mediastinum: Small lymph nodes, stable from prior exam. Aorta: Thoracic portion non-dilated. Pulmonary arteries: No visible emboli. Heart: No pericardial effusion. Bones: Unremarkable for age. No lytic or blastic lesions.No compression fractures. Soft tissues: Unremarkable. ABDOMEN and PELVIS: The exam is mildly limited by motion. Liver: Mildly enlarged. Fatty infiltration. No measurable mass. Gallbladder and biliary tract: No evidence of stones or wall thickening. No biliary dilatation. Pancreas: Normal density, no abnormal calcifications or inflammatory process. Spleen: Normal. Kidneys: Normal size, contour and axis. No radiodense stones. No obstructive uropathy. No suspicious masses seen. Adrenal glands: No masses seen. Aorta: Abdominal portion non-dilated. Lymph nodes: Within normal limits. Soft tissues: Unremarkable. Bladder: Unremarkable. Bowel: The stomach is filled with fluid. The duodenum is unremarkable. Distal small bowel loops are mildly distended. The colon also contains fluid, mainly at the cecum. The transverse through colon through rectum show little stool. Mild diverticulosis. No evidence of diverticulitis.. No obstruction or bowel wall thickening. Peritoneal cavity: No ascites. No focal collection. No mesenteric inflammatory response. No free air. Bones: Unremarkable for age. Reproductive organs: Within normal limits. IMPRESSION: No acute abnormality in the chest. The stomach, distal small bowel and cecum are mildly fluid distended no bowel wall thickening or inflammatory changes. Findings could represent gastroenteritis. Quality:[facility] Health Related Social Needs: No Data to Display Sign Out Sign Out Data: Sign Out Comment: 64-year-old male with epigastric pain needs laboratory review and further radiologic imaging of abdomen for as rotation of pathology. Last updated by Nabil Brito MD at 05/28/24 07:14 Discharge Plan Disposition Patient Disposition: Home Condition: Good Discharge Details Clinical Impression: Acute epigastric pain, Gastroenteritis Primary Care Provider: Nabil Marshall ED Provider: Celio Garcia Home Meds and New Rx's Prescriptions: No Action levothyroxine [Synthroid] 100 mcg tablet 100 mcg PO DAILY vitamin B complex Tablet 1 tab PO DAILY atorvastatin 10 mg tablet 10 mg PO QHS Jardiance 25 mg tablet 25 mg PO DAILY metformin 1,000 mg tablet 1,000 mg PO BID Spiriva Respimat 2.5 mcg/actuation mist 2 puff inhalation DAILY budesonide-formoterol [Symbicort] 160-4.5 mcg/actuation HFA aerosol inhaler 2 puff inhalation BID acetaminophen [Acetaminophen Extra Strength] 500 MG tablet 1,000 mg PO PRN PRN cholecalciferol (vitamin D3) [Vitamin D3] 400 UNIT tablet 400 units PO DAILY albuterol sulfate [ProAir HFA] 8.5 GM HFA aerosol inhaler 8.5 g Inhalation Q4H PRN Trulicity 1.5 mg/0.5 mL pen injector 1.5 mg SUBCUT .weekly Discharge Instructions Instructions: Nausea and Vomiting, Adult ED Additional Instructions: At this time your workup shows evidence to suggest gastroenteritis which may be secondary to a viral etiology. Please stick with a bland diet of small frequent sips of water or broth, small bites of crackers. Please avoid any greasy foods tomato-based products or spicy foods. Avoid any dairy. Stick with this bland diet for the next 48 to 72 hours. Please take the Zofran as needed for nausea or vomiting. If you notice any worsening of your symptoms, or any new symptoms such as vomiting, diarrhea, fever, chills, shortness of breath, chest pain, numbness, weakness, or fainting , please return immediately to the emergency department for reevaluation. Please follow up with your primary care provider as soon as possible for reassessment and reevaluation. As always, it was a pleasure participating in your medical care today. Referrals: Nabil Marshall [Primary Care Provider] -
[2024-05-28 09:24] VITALS: BP 110/61; PULSE 89; RESP 20; TEMP 36.5; O2SAT 90
[2024-05-28] MEDS: Normal Saline Flush 10 ML SYR IVP (09:33)
[2024-05-28 09:50] VITALS: O2SAT 91
[2024-05-28 10:01] VITALS: BP 106/62; PULSE 86; O2SAT 91
[2024-05-28] MEDS: Ondansetron O.D.T. 4 MG TABEF, 3 TABS/BTL PO (10:05)
== END 2024-05-28 10:23 | disposition home or self-care (01) ==
PROVIDERS: Emergency Medicine Emergency Medical Services; Emergency Provider Student in an Organized Health Care Education/Training Program; PCP Student in an Organized Health Care Education/Training Program
DX: R10.13 Epigastric pain (principal); K52.9 Noninfective gastroenteritis and colitis, unspecified; E10.40 Type 1 diabetes mellitus with diabetic neuropathy, unspecified; J44.9 Chronic obstructive pulmonary disease, unspecified; I10 Essential (primary) hypertension; Z79.84 Long term (current) use of oral hypoglycemic drugs; Z87.891 Personal history of nicotine dependence
CPT/HCPCS: 00123; 74177; 80053; 83690; 93005; 96374; 96375; 96376; 99285; 71260; 81003; 83735; 84484; 85025; 93010; 99284; J2270; J2405; J2470

== ENCOUNTER 2024-06-30 01:07 | Outpatient (CLI) | payer MEDICARE, SELFPAY ==
--- NOTE | 2024-06-30 | DI.CTLCSR_ITS ---
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 Lung Computer Aided Detection (CAD) was utilized. COMPARISON: CT CT CHEST LUNG CANCER SCREEN from 05/02/[address] CHEST LUNG CANCER SCREEN from 06/02/[address] CHEST LUNG CANCER SCREEN from 06/25/[address] CHEST/ABD/PEL W from 05/28/2024 FINDINGS: Tracheobronchial tree: Patent where visualized. No bronchiectasis. Pulmonary parenchyma: No consolidation or dominant measurable mass. No architectural distortion. Lung Nodules: There are few scattered stable nodules in the lungs none larger than 3 mm. The largest is in the periphery of the left upper lobe (series 2, image 26). No new pulmonary nodules are prese nt. Mediastinum and Lizzy: No dominant adenopathy or fluid collection. The esophagus is unremarkable.Stabl e appearance of the mediastinum. No suspicious adenopathy. Thyroid gland: Unremarkable. Lymph nodes: No suspicious axillary or supraclavicular adenopathy is present. Pleura: No effusion or pneumothorax. Heart: The heart is not dilated. Mild coronary artery calcification is present. No pericardial effus ion. Aorta: Thoracic aorta non-dilated.Atherosclerotic calcification is present. Upper abdomen: Unremarkable. Soft Tissues: Unremarkable. Bones: Within normal limits. IMPRESSION: No new or suspicious pulmonary nodules. Lung RADS Cat 2 - Benign Appearance / Behavior: Nodules with a very low likelihood of becoming a clin ically active cancer due to size or lack of growth Lung-RADS 1.0 CATEGORIES: Category 0 - Prior chest CT exam(s) being located for comparison. Category 1 - Annual screening in 12 months. No nodules or definitely benign nodules. Category 2 - Annual screening in 12 months. Benign appearance. Nodules with low likelihood of becomin g active cancer. Category 3 - 6-month follow-up. Probably benign. Short-term follow-up suggested. Nodules with low lik elihood of becoming active cancer. Category 4A - 3-month follow-up and CT/PET if >8 mm in size. Suspicious finding. Findings which requi re additional testing. Category 4B - Findings which require additional testing and tissue sampling. Suspicious finding. Category 4X - Category 3 or 4 nodules with additional features or imaging findings that increases the suspicion of malignancy. Modifier S- Potentially clinically significant finding. (Non lung cancer) RADIATION DOSE DELIVERED: 170.29mGy.cm Total DLP 170.29mGy.cmTotal DLP 170.29mGy.cm Total DLP 170.29mGy.cmTotal DLP DATA REPOSITORY: All CT scans at this facility are submitted to the National Radiology Data Registry (NRDR) Dose Index Registry (DIR) with the [employer] (ACR). RADIATION OPTIMIZATION: All CT scans at this facility use at least one of these dose optimization te chniques: automated exposure control; mA and/or kV adjustment per patient size (includes targeted exa ms where dose is matched to clinical indication); or iterative reconstruction.
== END 2024-06-30 01:27 ==
LOC: DI 01:08
PROVIDERS: PCP Student in an Organized Health Care Education/Training Program; Visit Provider Student in an Organized Health Care Education/Training Program
DX: Z87.891 Personal history of nicotine dependence (principal); Z12.2 Encounter for screening for malignant neoplasm of respiratory organs
CPT/HCPCS: 71271

== ENCOUNTER 2024-11-11 17:33 | Outpatient (CLI) | payer MEDICARE, SELFPAY ==
--- NOTE | 2024-11-11 | DI.RAD_ITS ---
Exam(s) XR HIP RT COMPLETE AP PELVIS EXAM: XR HIP RT COMPLETE AP PELVIS CLINICAL HISTORY: S/P Fall 1 month ago -R Hip Pain. TECHNIQUE: 2D digital imaging was performed of the right hip. Two images were obtained. AP pelvis a nd lateral right hip views were obtained. COMPARISON: CT CT CHEST/ABD/PEL W from 05/28/2024 FINDINGS: BONES: No definite evidence of an acute or healing fracture is seen on this x-ray. There is a lucenc y seen on the lateral view of the hip in the greater trochanter. Artifact versus nondisplaced fractu re. No bony destructive lesion is seen. JOINTS: No dislocation present. There are degenerative changes seen in the hips bilaterally character ized by joint space narrowing and osteophytes. Subchondral cysts are seen in the right acetabulum. The sacroiliac joints and symphysis pubis are unremarkable. There are degenerative changes seen in t he lower visualized lumbar spine. SOFT TISSUE: Normal. IMPRESSION: 1. No definite evidence of an acute or healing fracture or dislocation. 2. Artifact versus fracture involving the greater tuberosity appreciated on the lateral view. 3. An MRI of the right hip may be obtained for further evaluation and to assess for an occult fractur e. Unexpected findings DATA REPOSITORY: RADIATION DOSE DELIVERED:
--- NOTE | 2024-11-11 18:30 | DI.VRAD_ITS ---
PROCEDURE INFORMATION: Exam: XR Right Hip Exam date and time: 11/11/2024 5:54 PM Age: 64 years old Clinical indication: Right hip; S/P month 1 month ago -r hip pain TECHNIQUE: Imaging protocol: Radiologic exam of the right hip. Views: 2 or 3 views hip with pelvis when performed. COMPARISON: CT CHEST/ABD/PEL W 05/28/2024 8:02 AM FINDINGS: Bones/joints: An AP view of the pelvis is submitted with a coned-down lateral view of the right hip joint. No acute fracture or dislocation is seen in the pelvis or at the right hip joint. There is osteoarthritis at the hip joints bilaterally with marginal osteophyte formation. Degenerative changes are present at the pubic symphysis. There is discogenic degeneration at the lumbosacral junction. There appear to be posterior decompression defects in the lower lumbar spine, not well demonstrated by the plain film exam. Soft tissues: No gross focal soft tissue abnormality is seen. IMPRESSION: No acute fracture or dislocation seen in the pelvis or at the right hip joint. Dictated and Authenticated by: Delano Woody MD. Orderin LINDA HAYS MD
== END 2024-11-11 17:53 ==
LOC: DI 17:33
PROVIDERS: PCP Student in an Organized Health Care Education/Training Program; Visit Provider Nurse Practitioner Family
DX: R93.89 Abnormal findings on diagnostic imaging of other specified body structures (principal); M25.551 Pain in right hip
CPT/HCPCS: 73502

== ENCOUNTER 2024-11-17 00:48 | Outpatient (CLI) | payer MEDICARE, SELFPAY ==
--- NOTE | 2024-11-17 | DI.MRI_ITS ---
Exam(s) MR LOWER JOINT RT WO EXAM: MR LOWER JOINT RT WO CLINICAL HISTORY: ACUTE RT HIP PAIN,M25.551,F/U XR,? OCCULT FX TECHNIQUE: Multiplanar multisequence MRI of Pelvis was performed. T1 and stir axial and coronal sequences were performed. The patient was unable to tolerate further i maging. COMPARISON: CR,XR XR HIP RT COMPLETE AP PELVIS from 11/11/2024 FINDINGS: Bones: There is no fracture or contusion pattern. No bone marrow edema is seen. Degenerative cysts in the right superior acetabulum. Joints: No significant joint effusion is present. The SI joints and symphysis pubis show nasc-wr-[id number] rate degenerative changes. Musculotendinous structures: Musculotendinous structures demonstrate no abnormality. Intrapelvic structures demonstrate no significant abnormality. IMPRESSION: Degenerative changes at the right superior acetabulum. There is no evidence of fracture. The findin gs on recent plain films are consistent with artifact. DATA REPOSITORY: CONTRAST MATERIAL: Noncontrast
== END 2024-11-17 01:08 ==
LOC: DI 00:48
PROVIDERS: PCP Student in an Organized Health Care Education/Training Program; Visit Provider Physician Assistant Medical
DX: M16.11 Unilateral primary osteoarthritis, right hip
CPT/HCPCS: 73721

== ENCOUNTER 2025-01-27 14:20 | Outpatient (REF) | payer MEDICARE, SELFPAY ==
[2025-01-27 17:02] LABS: COMMENT (LAB VIEW ONLY) 109.15 mg/dL; Microalb ug/mg Crea 16.3 ug/mg Cr
== END 2025-01-27 14:21 | disposition home or self-care (01) ==
LOC: NCHCN 14:20
PROVIDERS: PCP Student in an Organized Health Care Education/Training Program; Visit Provider Student in an Organized Health Care Education/Training Program
DX: E11.9 Type 2 diabetes mellitus without complications (principal)
CPT/HCPCS: 82043; 82570

== ENCOUNTER → 2025-02-23 08:50 | Outpatient (BNVA) | payer MEDICARE, SELFPAY | PROVIDERS: PCP Student in an Organized Health Care Education/Training Program; Referring Provider Student in an Organized Health Care Education/Training Program; Visit Provider Physician Assistant | DX: M70.61 Trochanteric bursitis, right hip (principal); W10.9XXA Fall (on) (from) unspecified stairs and steps, initial encounter; Y93.01 Activity, walking, marching and hiking | CPT/HCPCS: 99213 ==

== ENCOUNTER 2025-04-29 10:08 | Outpatient (REF) | payer MEDICARE, SELFPAY ==
[2025-04-29 16:20] LABS: Anion Gap 10.7 mmol/L (3-11); BUN 16 mg/dL (7-18); CO2 25.3 mmol/L (21.0-32.0); Calcium 8.9 mg/dL (8.5-10.1); Chloride 106 mmol/L (98-107); Estimated GFR 94.19 (mL/min/1.73m2); Glucose 97 mg/dL (74-106); Potassium 4.2 mmol/L (3.5-5.1); Sodium 142 mmol/L (136-145); TSH (W/Ref FT4) 2.45 uIU/mL (0.36-3.74)
[2025-04-29 18:03] LABS: COMMENT (LAB VIEW ONLY) 96.85 mg/dL; Microalb ug/mg Crea 9.7 ug/mg Cr
== END 2025-04-29 10:09 | disposition home or self-care (01) ==
LOC: NCHCN 10:08
PROVIDERS: PCP Student in an Organized Health Care Education/Training Program; Visit Provider Student in an Organized Health Care Education/Training Program
DX: E03.9 Hypothyroidism, unspecified (principal); I10 Essential (primary) hypertension; E11.9 Type 2 diabetes mellitus without complications
CPT/HCPCS: 80048; 82043; 82570; 84443

== ENCOUNTER → 2025-05-18 02:08 | Outpatient (CLI) | payer MEDICARE, SELFPAY ==
--- NOTE | 2025-05-18 | DI.US_ITS ---
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 IMPRESSION: No evidence of abdominal aortic aneurysm. DATA REPOSITORY:
== END ==
LOC: DI 02:08
PROVIDERS: PCP Student in an Organized Health Care Education/Training Program; Visit Provider Student in an Organized Health Care Education/Training Program
DX: Z13.6 Encounter for screening for cardiovascular disorders (principal); Z87.891 Personal history of nicotine dependence
CPT/HCPCS: 76706

== ENCOUNTER → 2025-07-01 00:18 | Outpatient (CLI) | payer MEDICARE, SELFPAY ==
--- NOTE | 2025-07-01 | DI.CTLCSR_ITS ---
Exam(s) CT CHEST LUNG CANCER SCREEN EXAM: CT CHEST LUNG CANCER SCREEN CLINICAL HISTORY: PERS HX NICOTINE DEPENDENCE Z87.891 NO SIGNS SYMPTOMS QUIT LESS 7 YRS AGO TECHNIQUE: Imaging Protocol: Axial computed tomography images with coronal and sagittal reformatted images were created and reviewed. Lung Computer Aided Detection (CAD) was utilized. COMPARISON: CT CT CHEST LUNG CANCER SCREEN from 05/02/[address] CHEST LUNG CANCER SCREEN from 06/25/[address] CHEST LUNG CANCER SCREEN from 06/30/2024 FINDINGS: Tracheobronchial tree: Patent where visualized. No bronchiectasis. Pulmonary parenchyma: No consolidation or dominant measurable mass. No architectural distortion. Lung Nodules: There again seen a few small peripheral noncalcified pulmonary nodules. They are all less than 3 mm. There are no new pulmonary nodules. Mediastinum and Lizzy: No dominant adenopathy or fluid collection. The esophagus is unremarkable.There is a stable appearance of the mediastinum. Thyroid gland: Unremarkable. Lymph nodes: Unremarkable. Pleura: No effusion or pneumothorax. Heart: The heart is not dilated. There is mild coronary artery calcification. No pericardial effusion. Aorta: Thoracic aorta non-dilated.Mild atherosclerotic calcification is present. Upper abdomen: Unremarkable. Soft Tissues: Unremarkable. Bones: Within normal limits. IMPRESSION: Stable pulmonary nodules. There are no new pulmonary nodules. Lung RADS Cat 2 - Benign Appearance / Behavior: Nodules with a very low likelihood of becoming a clinically active cancer due to size or lack of growth Lung-RADS 1.0 CATEGORIES: Category 0 - Prior chest CT exam(s) being located for comparison. Category 1 - Annual screening in 12 months. No nodules or definitely benign nodules. Category 2 - Annual screening in 12 months. Benign appearance. Nodules with low likelihood of becoming active cancer. Category 3 - 6-month follow-up. Probably benign. Short-term follow-up suggested. Nodules with low likelihood of becoming active cancer. Category 4A - 3-month follow-up and CT/PET if >8 mm in size. Suspicious finding. Findings which require additional testing. Category 4B - Findings which require additional testing and tissue sampling. Suspicious finding. Category 4X - Category 3 or 4 nodules with additional features or imaging findings that increases the suspicion of malignancy. Modifier S- Potentially clinically significant finding. (Non lung cancer) RADIATION DOSE DELIVERED: 125.42mGy.cm Total DLP 125.42mGy.cmTotal DLP DATA REPOSITORY: All CT scans at this facility are submitted to the National Radiology Data Registry (NRDR) Dose Index Registry (DIR) with the [employer] ([employer]). RADIATION OPTIMIZATION: All CT scans at this facility use at least one of these dose optimization techniques: automated exposure control; mA and/or kV adjustment per patient size (includes targeted exams where dose is matched to clinical indication); or iterative reconstruction.
== END ==
PROVIDERS: PCP Student in an Organized Health Care Education/Training Program; Visit Provider Student in an Organized Health Care Education/Training Program
DX: Z87.891 Personal history of nicotine dependence (principal)
CPT/HCPCS: 71271

== ENCOUNTER → 2025-07-14 08:11 | Outpatient (BNVA) | payer MEDICARE, SELFPAY | PROVIDERS: PCP Student in an Organized Health Care Education/Training Program; Referring Provider Student in an Organized Health Care Education/Training Program; Visit Provider Podiatrist | DX: L60.3 Nail dystrophy (principal); B35.1 Tinea unguium; M79.671 Pain in right foot; M79.672 Pain in left foot; E10.42 Type 1 diabetes mellitus with diabetic polyneuropathy; I73.89 Other specified peripheral vascular diseases; R20.8 Other disturbances of skin sensation; L60.0 Ingrowing nail; L84 Corns and callosities; R09.89 Other specified symptoms and signs involving the circulatory and respiratory systems; R60.0 Localized edema; I83.93 Asymptomatic varicose veins of bilateral lower extremities; L65.9 Nonscarring hair loss, unspecified; R23.4 Changes in skin texture; L60.2 Onychogryphosis; L60.8 Other nail disorders; L85.8 Other specified epidermal thickening | CPT/HCPCS: 11056; 11721; 11755 ==